=== PATIENT | female | born 1975 | race Caucasian/White ===

== ENCOUNTER 2025-04-28 07:46 | Emergency (ER) | payer OTHER, SELFPAY ==
[2025-04-28 07:51] VITALS: BP 158/110
[2025-04-28 08:19] VITALS: BP 144/97; BMI 28.0
[2025-04-28] MEDS: ZOFRAN 4 MG IV (08:35)
[2025-04-28] MEDS: NSS 1000 IV (08:35)
[2025-04-28 08:44] LABS: Hematocrit 43.0 % (37.0-47.0); Hemoglobin 15.2 g/dL (12.0-16.0); Mean Corp Hgb Conc. 35.3 g/dL (33.0-37.0); Mean Corpuscular Volume 88.1 fL (81.0-99.0); Nucleated Red Blood Cells % 0 %; Platelet Count 260 10^3/uL (130-400); Red Cell Dist. Width 11.8 % (11.5-14.5)
[2025-04-28 09:01] LABS: ALT (SGPT) 23 U/L (0-35); AST (SGOT) 24 U/L (14-36); Albumin 4.6 g/dl (3.5-5.0); Alkaline Phosphatase 87 U/L (38-126); Blood Urea Nitrogen 11 mg/dl (7-17); Calcium 9.4 mg/dl (8.4-10.2); Carbon Dioxide 28 mmol/L (22-30); Chloride 106 mmol/L (98-107); Estimated Creatinine Clearance 114 ml/min; Glucose 97 mg/dl (70-99); Lipase 120 U/L (23-300); Potassium 4.0 mmol/L (3.5-5.1); Sodium 140 mmol/L (135-145); Total Protein 7.3 g/dl (6.3-8.2); eGFR > 60.00
--- NOTE | 2025-04-28 09:02 | ED.GENMED ---
History of Present Illness
General
Chief Complaint: Abdominal Symptoms
Time Seen by Provider: 04/28/25 08:11
Nursing documentation reviewed up to this point in time: agreed with
History of Present Illness
History of Present Illness:
49-year-old female presents to the ER for evaluation of nausea and headache which have been present and worsening over the past 24 hours. Patient reports that on Friday she had been working in a shed. She reports when she open the doors the
strong smell of mothballs was overpowering. She reports that she opened up both doors and then worked within the confines of the shed for approximately 5 hours. She states that she felt reasonably well after leaving the shed but over the next day
developed a generalized headache along with nausea. Patient states that she frequently experiences nausea but this is more so than usual. Patient had 1 episode of emesis last night after eating a muffin. She reports that she stayed in a hotel
last night. She reports mild right sided headache. She did take a dose of ibuprofen, last at 8:00 last night. She states that the headache is not similar to headache she has experienced in the past. She denies any change in vision. No focal
weakness or paresthesias to arms or legs. She denies any change in bowel habits and had a normal bowel movement this morning. She denies any dysuria, hematuria or change in urine output. She looked up her symptoms on the Internet and is concerned
that this is related to her significant amount ball exposure prompting visit to the ER today.
Review of Systems
Review of Systems
Allergies reviewed?: Yes
Phy Exam
Physical Exam
Physical Exam:
Patient is awake, alert, appears no acute distress, head is normocephalic atraumatic, PERRL, EOMI, no dysdiadochokinesia, no ataxia, no pronator drift, no photophobia, mucous membranes moist, tongue is midline, posterior pharynx is clear without
exudates, heart regular rate and rhythm without murmurs or ectopy, lungs are clear to auscultation without wheezes rales or rhonchi, abdomen is soft and nontender on palpation, GCS is 15, 2+ DP pulses present symmetric bilateral feet, no peripheral
edema noted
Course
Orders/Labs/Results
Orders:
Orders
04/28/25 08:20
0.9% Sodium Chloride 1000 ml [Nss] 1,000 ml IV BOLUS
Ondansetron Injectable [Zofran] 4 mg IV NOW STA
04/28/25 08:23
Test Result ONCE
04/28/25 08:32
ABG [Arterial Blood Gas] Urgent
%Oxygen/Room Air: room air
Complete Blood Count/With Diff Urgent
Comprehensive Metabolic Panel Urgent
Lipase Urgent
04/28/25 09:27
HCG, Urine Qualitative Screen Urgent
Date Specimen was Collected: 04/28/25
Time Specimen was Collected: 09:03
Urinalysis Urgent
Date Specimen was Collected: 04/28/25
Time Specimen was Collected: 09:03
04/28/25 09:33
Ketorolac [Toradol] 15 mg IV NOW STA
04/28/25 10:00
Methemoglobin Urgent
Abnormal Lab Results
04/28/25
08:32
WBC 4.3 L 10^3/uL
(4.8-10.8)
MCH 31.1 H pg
(27.0-31.0)
pH 7.54 H
(7.35-7.45)
pCO2 24 L mmHg
(32-35)
pO2 158 H mmHg
(83-108)
HCO3 20.5 L mmol/L
(21-28)
ABG O2 Sat (Measured) 100.0 H %
(94-98)
Creatinine 0.5 L mg/dL
(0.6-1.0)
04/28/25 08:32
04/28/25 08:32
CBC and electrolytes within normal limits, methemoglobin within normal limits
Vital Signs
Initial and Last Documented VS:
Initial Vital Signs
Temp Pulse Resp BP Pulse Ox
98.0 F 75 16 158/110 98
04/28/25 07:51 04/28/25 07:51 04/28/25 07:51 04/28/25 07:51 04/28/25 07:51
Last Documented Vital Signs
Temp Pulse Resp BP Pulse Ox
98.0 F 60 16 144/97 100
04/28/25 07:51 04/28/25 08:19 04/28/25 08:19 04/28/25 08:19 04/28/25 09:06
MDM/Problems Addressed
Differential Diagnosis Includes:
Methemoglobinemia, viral syndrome, gastritis, gastroenteritis, anxiety, along with other etiologies considered
*Pulse Oximetry
SaO2: 100
Oxygen Mode of Delivery: Room air
Patient hypoxic: no
*Critical Care Note
Total Time (30-74mins, 75-104mins- exclusive of procedures): Not Applicable
Update Note
Update Note:
ABG is ordered to definitively assess for methemoglobinemia, although low clinical suspicion given overall benign appearance of the patient. Will treat symptomatically with Zofran and IV fluids while awaiting test results
1017: Patient with resolution of nausea after Zofran administration. Vital signs stable. I discussed with her very reassuring workup- suspect spurious pH given normal CO2 on chemistry. I discussed with her continued supportive treatment I
discussed with her continued supportive treatment along with likely discharge home. Will give trial of p.o.
ED Attending Note
-
Portions of this chart may have been created with voice recognition software.� Occasional wrong word or��sound alike� substitutions may have occurred due to the inherent limitations of voice recognition software.
Discharge Plan
Departure
Patient Disposition: Home (Routine Discharge)
Date of Disposition: 04/28/25
Time of Disposition: 10:55
Patient with high blood pressure during this ER visit?: Yes
Discharge Problem:
Nausea, Headache
Instructions: Nausea and vomiting in adults, Headache in adults - ED (DC)
Prescriptions:
New
ondansetron 4 mg tablet,disintegrating
4 mg PO TIDPRN PRN (Reason: nausea/vomiting) Qty: 10 0RF
No Action
Alpha Crs+
2 tab PO DAILY
biotin 10,000 MCG capsule
10,000 mcg PO DAILY
Digest Jose
1 tab PO DAILY
Micro Plexvmz
2 tab PO DAILY
Vitafusion
3 gum PO DAILY
Xeo Ra
2 tab PO DAILY
Tumeric Curcumin
2 tab PO DAILY
hydrocodone-acetaminophen 1 TABLET tablet
1 tab PO Q4HPRN PRN (Reason: moderate pain) Qty: 20 0RF
ibuprofen 600 MG tablet
600 mg PO Q6HPRN PRN (Reason: mild cramps/pain) Qty: 30 0RF
Referrals:
Natalee Mixon CRNP [Family Provider, Family Practice]
Activity Restrictions/Additional Instructions:
Encourage fluids. Please follow a bland diet until your symptoms improve. Please follow-up with your doctor in 2 days for reevaluation. Return to the ER for any concerns
Interventions
Interventions:
*Risk Screen - Suicide Last Done: 04/28/25 07:51
*General Assessment Last Done: 04/28/25 08:19
*Neglect/Abuse Screening Last Done: 04/28/25 07:51
*ED- Fall Risk Assessment Last Done: 04/28/25 08:19
*ED COVID-19 Vaccine History Last Done: 04/28/25 08:19
MV-Dnuaed-Aozswditgi Assessment Last Done: 04/28/25 08:19
Discharge Date and Time
Print Language: NIUEAN
[2025-04-28 09:05] LABS: B.E. -0.3 mmol/L; HCO3 20.5 mmol/L (21-28); O2 Saturation % 100.0 % (94-98); PCO2 24 mmHg (32-35); PO2 158 mmHg (83-108)
[2025-04-28 09:42] LABS: Urine Character Clear (Clear)
[2025-04-28 09:46] LABS: HCG, Urine Qualitative Screen Negative
[2025-04-28] MEDS: TORADOL 15 MG IV (10:02)
[2025-04-28 10:14] LABS: Methemoglobin 0.9 % (0.5-1.5)
[2025-04-28 11:48] VITALS: BP 123/85
== END 2025-04-28 11:48 | disposition home or self-care (01) ==
LOC: EMR 07:46
PROVIDERS: EMERGENCY PHYSICIAN Emergency Medicine; FAMILY PHYSICIAN Nurse Practitioner Family
DX: R11.0 Nausea (principal); R51.9 Headache, unspecified
CPT/HCPCS: 96374; 96375; 96361; 99284; 80053; 81003; 81025; 82805; 83050; 83690; 85025

== ENCOUNTER → 2025-05-25 08:21 | Outpatient (REF) | payer OTHER, SELFPAY | LOC: HWWDC 08:21 | PROVIDERS: ATTENDING PHYSICIAN Nurse Practitioner Family | DX: Z12.31 Encounter for screening mammogram for malignant neoplasm of breast (principal) | CPT/HCPCS: 77063; 77067 ==